=== PATIENT | male | born 1970 | race Caucasian/White ===

== ENCOUNTER 2022-12-25 16:52 | Emergency (ER) | payer BC, OTHER ==
--- OUTSIDE RECORDS SUMMARY | 2022-12-25 16:57 | XMS REPORT | Continuity of Care Document ---
:1970 Author Organization [facility] t Address [address] [place] [address] Care Team Providers Name Role Phone SANDER DELEON Primary Care Physician Unavailable SANDER DELEON Attending Clinician Unavailable Sander Deleon MD Attending Clinician Theodore Rg MD Attending Clinician RYAN KELLER Attending Clinician Unavailable Lab, Adc Fam Pob I Attending Clinician Unavailable RILEY PIERRE Attending Clinician Unavailable Payers Payer Name Policy Type Policy Number Effective Date Expiration Date Elio gamboa CIGNA II [id number] 2021 00:00:00 [facility] [id number] 2013 00:00:00 Problems Condition Condition Condition Status Onset Resolution Last Treating Co mments Source Name Details Category Date Date Treatment Clinician Date No known No known Disease Unive rs active active ity of problems problems [facility] Allergies, Adverse Reactions, Alerts Allergy Allergy Status Severity Reaction(s) Onset Inactive Treating Comm ents Source Name Type Date Date Clinician NO KNOWN Drug Active Univers ALLERGIE Class ity of S [facility] Family History Family Member Diagnosis Comments Start Date Stop Date Source Natural father Heart attack [facility] Natural father Heart disease [facility] Natural father Stroke [facility] Social History Social Habit Start Date Stop Date Quantity Comments Source Exposure to Not sure [facility] SARS-CoV-2 [facility] Alcohol intake 2021-01-02 2021-01-02 Current drinker [facility] 00:00:00 00:00:00 of alcohol (finding) Tobacco use and 2017-12-30 2017-12-30 Never used Universit y of exposure 00:00:00 00:00:00 [facility] Sex Ass[birth year] [facility] 00:00:00 00:00:00 Smoking Status Start Date Stop Date Source Never smoker [facility] Medications Ordered Filled Start Stop Current Ordering Indication Dosage Frequency Signature Comments Components Source Medication Medication Date Date Medication? Clinician (SIG) Name Name No known No Univers medications 4-14 ity of 14:33: [address] No known No Univers medications [facility] No known No Univers medications [facility] No known No Univers medications [facility] Vital Signs Vital Name Observation Time Observation Value Comments Source Systolic blood 2021-03-06 19:32:00 140 mm[Hg] Univer [facility] Diastolic blood 2021-03-06 19:32:00 90 mm[facility]Hg[facility] 2021-03-06 19:32:00 73 /min [facility] Body temperature 2021-03-06 19:32:00 36.89 [facility] Body height 2021-03-06 19:32:00 195.6 cm [facility] Body weight 2021-03-06 19:32:00 168.284 kg [facility] BMI 2021-03-06 19:32:00 43.99 kg/m2 [facility] Procedures This patient has no known procedures. Plan of Care Planned Activity Planned Date Details Comments Source Future Scheduled 2022-11-08 COVID-19 VACCINE (#1) [facility] Test 14:08:50 [code = COVID-19 VACCINE (#1)] Future Scheduled 2022-11-08 Hepatitis C screening [facility] Test 14:08:50 (procedure) [code = 601061700] Future Scheduled 2022-11-08 COLONOSCOPY SCREENING [facility] Test 14:08:50 [code = COLONOSCOPY SCREENING] Future Scheduled 2022-11-08 SHINGLES VACCINES (1 Met [facility] Test 14:08:50 of 2) [code = SHINGLES VACCINES (1 of 2)] Future Scheduled 2022-11-08 INFLUENZA VACCINE Method [facility] Test 14:08:50 [code = INFLUENZA VACCINE] Encounters Start End Encounter Admission Attending Care Care Encounter Source Date/Time Date/Time Type Type Clinicians Facility Department ID 2022-10-23 2022-10-23 [facility] [id number] Univers 09:00:00 09:00:00 [facility] 2022-05-15 2022-05-15 [facility] [id number] Univers 09:00:00 09:00:00 [facility] 2022-04-11 2022-04-11 [facility] [id number] Univers 10:30:00 10:30:00 [facility] 2022-04-10 2022-04-10 [facility] [id number] Univers 00:00:00 00:00:00 (Out) [facility] [id number] it y of Vivek WHEAT [id number] Thee as BO?BLEA [id number] [address] MEDICAL OFFICE BUILDING 2022-02-04 2022-02-04 Telephone Arcenio, [id number] Methodi 00:00:00 00:00:00 Theodore [id number] Hospit [id number] l .8 2021-06-06 2021-06-06 Outpatient SITTER, [facility] [id number] [place] 00:00:00 00:00:00 RYAN 202 Method i 2021-05-30 2021-05-30 Outpatient SITTER, [facility] [id number] [place] 00:00:00 00:00:00 RYAN 056 Method i 2021-05-23 2021-05-23 Outpatient SITTER, [facility] [id number] [address] [place] [address] 00:00:00 00:00:00 RYAN 922 Method i 2021-03-06 2021-03-06 Limited Radiology Technician Lab, Adc Fam Pob I [facility] [id number] Univers 14:47:13 15:07:[address] [facility] [id number] ity avinash [place] [id number] Thee as Professio [phone] In dical nal 044 [place] Office [facility] 2021-03-06 2021-03-06 [email or web address] [id number] [facility] 14:26:29 14:56:29 Visit [facility] [id number] it y of Vivek [place] [id number] Thee as Professio [phone] In dical nal 044 [facility] 2021-03-06 2021-03-06 [facility]patient [facility] [id number] Univers 14:30:00 14:30:00 SANDER [facility] 2021-01-11 2021-01-[address] [facility] [id number] Univers 08:00:00 08:00:00 [facility] 2021-01-02 2021-01-02 Outpatient SITTER, [facility] [id number] [place] 00:00:00 00:00:00 RYAN 053 Method i 2021-01-02 2021-01-02 Outpatient SITTER, [facility] [id number] [place] 00:00:00 00:00:00 RYAN 062 Method i 2021-01-02 2021-01-02 Outpatient SITTER, [facility] [id number] [place] 00:00:00 00:00:00 RYAN 723 Method i 2020-09-12 2020-09-12 Outpatient AGHAZADEH, [facility] [id number] [place] 00:00:00 00:00:00 RILEY 459 Method i 2020-09-10 2020-09-10 Outpatient AGHAZADEH, [facility] [id number] [place] 00:00:00 00:00:00 RILEY 472 Method i 2020-09-05 2020-09-05 [id number] [place] 00:00:00 00:00:00 RILEY Andrews [facility] st Results This patient has no known results.
[2022-12-25] MEDS ORDERED: TDAP (DIPHTH,PERTUSS(ACELL),TET VAC) 0.5 ML VIAL IMVAC ONE (17:13)
[2022-12-25] MEDS ORDERED: ASPIRIN 81 MG CHEWABLE TABLET ONE ×2 (17:21→17:36)
[2022-12-25 17:48] LABS: Absolute Lymphocytes (CBC) 2.1 K/uL (0.7-4.9); Hematocrit 45.8 % (39.6-49.0); Lymphocytes % 32.3 % (15.3-44.8); MCV 96.1 fL (80-100); MPV 7.9 fL (7.6-11.3); RBC Red Blood Cell Count 4.77 M/uL (4.33-5.43)
--- NOTE | 2022-12-25 18:00 | RAD REPORT ---
EXAM DESCRIPTION: RAD - Chest Single View - 12/25/2022 5:40 pm CLINICAL HISTORY: CHEST PAIN Chest pain. COMPARISON: No comparisons FINDINGS: Portable technique limits examination quality. Mild interstitial pulmonary edema. The heart is mildly enlarged in size. No displaced fractures. IMPRESSION: Mild CHF.
[2022-12-25 18:08] LABS: Magnesium 2.5 mg/dL (1.6-2.4); Potassium 3.9 mmol/L (3.5-5.1); Troponin High Sensitivity 7.8 pg/mL (<58.9)
--- NOTE | 2022-12-25 19:19 | RAD REPORT ---
EXAM DESCRIPTION: CT - Chest Angio - 12/25/2022 7:09 pm CLINICAL HISTORY: Chest pain. Pleuritic chest pain COMPARISON: No comparisons TECHNIQUE: CT angiogram of the pulmonary arteries was performed with MIP. All CT scans are performed using dose optimization technique as appropriate and may include automated exposure control or mA/KV adjustment according to patient size. FINDINGS: No evidence of pulmonary thromboembolism. No acute aortic finding demonstrated. The lungs are clear. No significant pericardial or pleural fluid. No concerning bony finding. IMPRESSION: No evidence of pulmonary thromboembolism. No acute lung findings.
--- NOTE | 2022-12-25 20:18 | EDPHYS ---
Physician Documentation [facility] Name: Louie Roach Age: 52 yrs Sex: Male : 1970 Arrival Date: 12/25/2022 Time: 16:52 Bed 4 Private MD: Louie Deleon ED Physician Darin Padron HPI: 12/25 17:10 This 52 yrs old Male presents to ER via Ambulatory with complaints of Chest Pain. ms3 17:10 52-year-old male with no past medical history presents for left lower chest pain that ms3 began on Thursday. Patient states the pain has become worse over the last 2 hours. Patient endorses shortness of breath and lightheadedness. Patient denies diaphoresis, fevers, chills. Patient rates his pain as 6/10 and describes the discomfort as being tight. Patient denies alleviating or inciting factors.. Historical: - Allergies: 17:02 No Known Allergies; ll1 - PMHx: 17:02 None; ll1 - PSHx: 17:02 knee SX; ll1 - Immunization history:: Client reports receiving the 2nd dose of the Covid vaccine. - Social history:: Smoking status: Patient denies any tobacco usage or history of. ROS: 17:10 Constitutional: Negative for fever, and chills. ENT: Negative for injury, pain, and ms3 discharge, Neck: Negative for injury, pain, and swelling. 17:10 Abdomen/GI: Negative for abdominal pain, nausea, vomiting, diarrhea, and constipation, MS/Extremity: Negative for injury and deformity, Skin: Negative for injury, rash, and discoloration, Neuro: Negative for headache, weakness, numbness, tingling. 17:10 Cardiovascular: Positive for chest pain. 17:10 Respiratory: Positive for shortness of breath. 17:10 All other systems are negative. Exam: 17:10 Constitutional: This is a well developed, well nourished patient who is awake, alert, ms3 and in no acute distress. Head/Face: Normocephalic, atraumatic. Neck: Trachea midline, no cervical lymphadenopathy. Supple, full range of motion without nuchal rigidity, or vertebral point tenderness. No Meningismus. Cardiovascular: Regular rate and rhythm with a normal S1 and S2. No gallops, murmurs, or rubs. Normal PMI, no JVD. No pulse deficits. Respiratory: Lungs have equal breath sounds bilaterally, clear to auscultation and percussion. No rales, rhonchi or wheezes noted. No increased work of breathing, no retractions or nasal flaring. Abdomen/GI: Soft, non-tender, with normal bowel sounds. No distension or tympany. No guarding or rebound. No evidence of tenderness throughout. Skin: Warm, dry with normal turgor. Normal color with no rashes, no lesions, and no evidence of cellulitis. MS/ Extremity: Pulses equal, no cyanosis. Neurovascular intact. Full, normal range of motion. 17:10 Chest/axilla: Inspection: normal, Palpation: tenderness, that is moderate, of the ms3 Left lateral chest, that totally reproduces the patient's complaints. 17:11 ECG was reviewed by the Attending Physician. ms3 Vital Signs: 17:02 BP 168 / 113; Pulse 98; Resp 18; Temp 98.8; Pulse Ox 98% ; Weight 158.76 kg; Height 6 ll1 ft. 4 in. (193.04 cm); Pain 5/10; 17:42 BP 155 / 93; Pulse 80; Resp 18; Pulse Ox 98% on R/A; kc6 18:15 BP 140 / 90; Pulse 77; Pulse Ox 96% on R/A; ap3 19:00 BP 160 / 93; Pulse 76; Resp 18; Temp 98; Pulse Ox 97% ; Pain 5/10; pf1 20:00 BP 145 / 85; Pulse 71; Resp 18; Temp 98.2; Pulse Ox 100% on R/A; Pain 5/10; pf1 17:02 Body Mass Index 42.60 (158.76 kg, 193.04 cm) ll1 MDM: 17:10 Patient medically screened. ms3 17:10 Differential diagnosis: abnormal EKG, acute myocardial infarction, coronary artery ms3 disease chest wall pain. 18:44 HEART Score: History: Slightly Suspicious (0), ECG: Normal (0), Age: > 45 and < 65 ms3 years (1), Risk Factors: No Risk Factors Known (0), Troponin: < or = 1 x Normal Limit (0), Total Score = 1. 19:09 Transition of care: After a detail discussion of the patient's case, care is ms3 transferred to Darin Padron MD. 20:18 Data reviewed: vital signs, nurses notes, lab test result(s), EKG, radiologic studies. rt I considered the following discharge prescriptions or medication management in the emergency department Medications were administered in the Emergency Department. See MAR. Special discussion: I discussed with the patient/guardian in detail that at this point there is no indication for admission to the hospital. It is understood, however, that if the symptoms persist or worsen the patient needs to return immediately for re-evaluation. 12/25 17:10 Order name: Basic Metabolic Panel; Complete Time: 18:41 ms3 12/25 17:10 Order name: CBC with Diff; Complete Time: 18:03 ms3 12/25 17:10 Order name: Magnesium; Complete Time: 18:41 ms3 12/25 17:10 Order name: Troponin HS; Complete Time: 18:41 ms3 12/25 18:23 Order name: NT PRO-BNP; Complete Time: 18:41 EDMS 12/25 17:10 Order name: XRAY Chest (1 view); Complete Time: 18:03 ms3 12/25 17:10 Order name: EKG; Complete Time: 17:11 ms3 12/25 17:10 Order name: Cardiac monitoring; Complete Time: 17:13 ms3 12/25 17:10 Order name: EKG - Nurse/Tech; Complete Time: 17:13 ms3 12/25 17:10 Order name: IV Saline Lock; Complete Time: 17:36 ms3 12/25 18:51 Order name: CT Chest Angio; Complete Time: 19:22 ms3 12/25 17:10 Order name: Labs collected and sent; Complete Time: 17:36 ms3 12/25 17:10 Order name: O2 Per Protocol; Complete Time: 17:13 ms3 12/25 17:10 Order name: O2 Sat Monitoring; Complete Time: 17:13 ms3 EC:11 Rate is 91 beats/min. Rhythm is regular. QRS [place] is Normal. WI interval is normal. QRS ms3 interval is normal. Clinical impression: Normal ECG. Interpreted by me. Reviewed by me. Administered Medications: 17:36 Drug: Aspirin Chewable Tablet 324 mg Route: PO; kc6 19:00 Follow up: Response: Marked relief of symptoms; Pain is decreased; RASS: Alert and Calm pf1 (0) Disposition Summary: 12/25/22 20:18 Discharge Ordered Location: Home rt Problem: new rt Symptoms: are unchanged rt Condition: Stable rt Diagnosis - Chest pain, unspecified rt Followup: rt - With: Louie Deleon MD - When: 2 - 3 days - Reason: Followup: rt - With: Martinez Marroquin MD - When: 5 - 6 days - Reason: Discharge Instructions: - Discharge Summary Sheet rt - Nonspecific Chest Pain, Adult rt Forms: - Medication Reconciliation Form rt - Thank You Letter rt - Antibiotic Education rt - Prescription Opioid Use rt Signatures: Dispatcher [employer] EDMS Edgard Stark RN RN ll1 Cristian King DO DO ms3 Linda Arreguin RN RN kc6 Darin Padron MD MD rt Terri woodard RN pf1 Corrections: (The following items were deleted from the chart) 17:12 17:10 Constitutional: This is a well developed, well nourished patient who is awake, ms3 alert, and in no acute distress. Head/Face: Normocephalic, atraumatic. Neck: Trachea midline, no cervical lymphadenopathy. Supple, full range of motion without nuchal rigidity, or vertebral point tenderness. No Meningismus. Chest/axilla: Normal chest wall appearance and motion. Nontender with no deformity. Cardiovascular: Regular rate and rhythm with a normal S1 and S2. No gallops, murmurs, or rubs. Normal PMI, no JVD. No pulse deficits. Respiratory: Lungs have equal breath sounds bilaterally, clear to auscultation and percussion. No rales, rhonchi or wheezes noted. No increased work of breathing, no retractions or nasal flaring. Abdomen/GI: Soft, non-tender, with normal bowel sounds. No distension or tympany. No guarding or rebound. No evidence of tenderness throughout. Skin: Warm, dry with normal turgor. Normal color with no rashes, no lesions, and no evidence of cellulitis. MS/ Extremity: Pulses equal, no cyanosis. Neurovascular intact. Full, normal range of motion. ms3 18:24 18:05 PROBNP+C.LAB.BRZ ordered. EDMS EDMS 18:57 18:44 D-DIMER+COAG.LAB.BRZ ordered. EDMS EDMS
--- NOTE | 2022-12-25 20:18 | ER ---
Nurse's Notes [facility] Name: Louie Roach Age: 52 yrs Sex: Male : 1970 Arrival Date: 12/25/2022 Time: 16:52 Bed 4 Private MD: Louie Deleon Diagnosis: Chest pain, unspecified Presentation: 12/25 17:02 Chief complaint: Patient states: L lower CP with SOB for 3 days. [place] like passing out ll1 at HEB today. No fever or cough. Coronavirus screen: Vaccine status: Patient reports receiving the 2nd dose of the covid vaccine. Client denies travel out of the [place] in the last 14 days. At this time, the client does not indicate any symptoms associated with coronavirus-19. Ebola Screen: Patient denies travel to an Ebola-affected area in the 21 days before illness onset. Initial Sepsis Screen: Does the patient meet any 2 criteria? HR > 90 bpm. No. Patient's initial sepsis screen is negative. Does the patient have a suspected source of infection? No. Patient's initial sepsis screen is negative. Risk Assessment: Do you want to hurt yourself or someone else? Patient reports no desire to harm self or others. Onset of symptoms was December 23, 2022. 17:02 Method Of Arrival: Ambulatory ll1 17:02 Acuity: SEBAS 2 ll1 Historical: - Allergies: 17:02 No Known Allergies; ll1 - PMHx: 17:02 None; ll1 - PSHx: 17:02 knee SX; ll1 - Immunization history:: Client reports receiving the 2nd dose of the Covid vaccine. - Social history:: Smoking status: Patient denies any tobacco usage or history of. Screenin:12 [facility] ED Fall Risk Assessment (Adult) History of falling in the last 3 months, kc6 including since admission No falls in past 3 months (0 pts) Confusion or Disorientation No (0 pts) Intoxicated or Sedated No (0 pts) Impaired Gait No (0 pts) Mobility Assist Device Used No (0 pt) Altered Elimination No (0 pt) Score/Fall Risk Level 0 - 2 = Low Risk Oriented to surroundings, Maintained a safe environment, Educated pt \T\ family on fall prevention, incl call for assistance when getting out of bed, Assessed \T\ reinforced patient's understanding of fall precautions, Hourly rounding (assess needs \T\ fall precautionary measures) done. Abuse screen: Denies threats or abuse. Denies injuries from another. Nutritional screening: No deficits noted. Tuberculosis screening: No symptoms or risk factors identified. Assessment: 17:10 General: Appears in no apparent distress. uncomfortable, Behavior is calm, cooperative, kc6 appropriate for age. Pain: Complains of pain in chest Pain does not radiate. Pain currently is 5 out of 10 on a pain scale. Quality of pain is described as sharp, Pain began suddenly, Is continuous, Alleviated by nothing. Also complains of no other associated symptoms. Neuro: Garay Agitation-Sedation Scale (RASS): 0 - Alert and Calm Level of Consciousness is awake, alert, obeys commands, Oriented to person, place, time, situation, Appropriate for age. Cardiovascular: Heart tones S1 S2 present Capillary refill < 3 seconds. Respiratory: Reports shortness of breath Airway is patent Trachea midline Respiratory effort is even, unlabored, Respiratory pattern is regular, symmetrical, Breath sounds are clear bilaterally. GI: Reports nausea. : No signs and/or symptoms were reported regarding the genitourinary system. EENT: No signs and/or symptoms were reported regarding the EENT system. Derm: No signs and/or symptoms reported regarding the dermatologic system. Skin is intact, Skin is pink, warm \T\ dry. Musculoskeletal: No signs and/or symptoms reported regarding the musculoskeletal system. Circulation, motion, and sensation intact. Capillary refill < 3 seconds, Range of motion: intact in all extremities. 18:10 Reassessment: Patient appears in no apparent distress at this time. No changes from kc6 previously documented assessment. Patient and/or family updated on plan of care and expected duration. Pain level reassessed. Patient is alert, oriented x 3, equal unlabored respirations, skin warm/dry/pink. 19:00 General: Appears in no apparent distress. comfortable, obese, well groomed, well pf1 developed, Behavior is calm, cooperative, appropriate for age, quiet. 19:00 Pain: Complains of pain in chest Pain radiates to back Pain currently is 5 out of 10 on pf1 a pain scale. Quality of pain is described as aching. Neuro: No deficits noted. Level of Consciousness is awake, alert, obeys commands, Oriented to person, place, time, situation, Appropriate for age. Cardiovascular: Capillary refill < 3 seconds Patient's skin is warm and dry. Chest pain. Respiratory: Reports shortness of breath Airway is patent Trachea midline Respiratory effort is even, unlabored, Respiratory pattern is regular, symmetrical, Breath sounds are clear bilaterally. GI: No deficits noted. Abdomen is round non-distended, obese. : No deficits noted. No signs and/or symptoms were reported regarding the genitourinary system. EENT: No deficits noted. No signs and/or symptoms were reported regarding the EENT system. 20:00 Reassessment: Patient appears in no apparent distress at this time. No changes from pf1 previously documented assessment. Patient and/or family updated on plan of care and expected duration. Pain level reassessed. Patient is alert, oriented x 3, equal unlabored respirations, skin warm/dry/pink. Patient states feeling better. Patient states symptoms have improved. Vital Signs: 17:02 BP 168 / 113; Pulse 98; Resp 18; Temp 98.8; Pulse Ox 98% ; Weight 158.76 kg; Height 6 ll1 ft. 4 in. (193.04 cm); Pain 5/10; 17:42 BP 155 / 93; Pulse 80; Resp 18; Pulse Ox 98% on R/A; kc6 18:15 BP 140 / 90; Pulse 77; Pulse Ox 96% on R/A; ap3 19:00 BP 160 / 93; Pulse 76; Resp 18; Temp 98; Pulse Ox 97% ; Pain 5/10; pf1 20:00 BP 145 / 85; Pulse 71; Resp 18; Temp 98.2; Pulse Ox 100% on R/A; Pain 5/10; pf1 17:02 Body Mass Index 42.60 (158.76 kg, 193.04 cm) ll1 Vitals: 17:42 Cardiac Rhythm Assessment Sinus rhythm. kc6 ED Course: 16:52 Patient arrived in ED. as 16:54 Arm band placed on. ll1 16:55 Louie Deleon MD is Private Physician. as 16:57 Cristian King DO is Attending Physician. ms3 17:03 Triage completed. ll1 17:10 Linda Arreguin, KAYLYN is Primary Nurse. kc6 17:12 Patient has correct armband on for positive identification. Placed in gown. Bed in low kc6 position. Call light in reach. Side rails up X2. Adult w/ patient. Client placed on continuous cardiac and pulse oximetry monitoring. NIBP monitoring applied. laboratory monitor on. 17:12 Patient maintains SpO2 saturation greater than 95% on room air. kc6 17:41 XRAY Chest (1 view) In Process Unspecified. EDMS 17:42 Initial lab(s) drawn, by ED staff, sent to lab. Inserted saline lock: 20 gauge in right kc6 antecubital area, using aseptic technique. Blood collected. 19:04 Attending Physician role handed off by Cristian King DO rt 19:04 Darin Padron MD is Attending Physician. rt 19:11 CT Chest Angio In Process Unspecified. EDMS 20:17 Louie Deleon MD is Referral Physician. rt 20:17 Martinez Marroquin MD is Referral Physician. rt 20:27 IV discontinued, intact, bleeding controlled, No redness/swelling at site. Pressure pf1 dressing applied. 20:29 No provider procedures requiring assistance completed. pf1 Administered Medications: 17:36 Drug: Aspirin Chewable Tablet 324 mg Route: PO; kc6 19:00 Follow up: Response: Marked relief of symptoms; Pain is decreased; RASS: Alert and Calm pf1 (0) Medication: 17:42 VIS not applicable for this client. kc Outcome: 20:18 Discharge ordered by . rt 20:29 Discharged to home ambulatory. pf1 20:29 Condition: improved 20:29 Discharge instructions given to patient, Instructed on discharge instructions, follow up and referral plans. Demonstrated understanding of instructions, follow-up care. 20:29 Patient left the ED. pf1 Signatures: Dispatcher [employer] Adela Wilson Amanda RN RN ap3 Edgard Stark RN RN ll1 Cristian King DO DO ms3 Linda Arreguin RN RN kc6 Darin Padron MD MD rt Terri woodard RN RN pf1
[2022-12-25 21:14] VITALS: BP 145/85; TEMP 98.2; O2SAT 100
== END 2022-12-25 20:29 | disposition home or self-care (01) ==
LOC: ER 16:52
DX: R07.89 Other chest pain (principal)
CPT/HCPCS: 93005; 85025; 80048; 36415; 83735; 84484; 83880; 71275; 71045; 99285; Q9967